=== PATIENT | female | born 1935 | race Two or more races ===

== ENCOUNTER 2023-07-05 00:15 | Emergency (ER) | payer OTHER ==
[~2023-07-05] VITALS: Ht 157.5 cm; Wt 49.9 kg
[2023-07-05] MEDS ORDERED: JANUMET 50-1,01 EACH PO (00:26)
[2023-07-05] MEDS ORDERED: ZESTRIL2.5 MG (00:26)
[2023-07-05] MEDS ORDERED: LEVOTHYROXINE25 MCG PO (00:26)
[2023-07-05 05:05] LABS: HEMATOCRIT 31.7 % (36.0-45.00); HEMOGLOBIN 10.7 g/dL (12.0-15.00); MEAN CELL VOLUME 88.5 fL (80.00-100.00); MEAN CORPUSCULAR HEMOGLOBIN 29.8 pg (27.00-32.0); MEAN CORPUSCULAR HGB CONC 33.7 g/dl (32.0-36.0); PLATELET COUNT 331 K/uL (150-450); RED BLOOD COUNT 3.58 M/uL (4.00-6.00); RED CELL DISTRIBUTION WIDTH 14.9 % (11.5-14.5)
[2023-07-05 05:09] LABS: INR 1.03; PROTHROMBIN TIME 10.8 SECONDS (9.0-11.5)
[2023-07-05 05:18] LABS: ALBUMIN 3.9 gm/dL (3.4-5.0); BILIRUBIN TOTAL 0.25 mg/dL (0.3-1.2); CALCIUM 10.4 mg/dL (8.5-10.1); CREATININE SERUM 0.96 mg/dL (0.55-1.02); GFR 54.98; GLOBULINA 5.4 G/DL (2.4-3.5); POTASSIUM 4.03 mEq/L (3.5-5.1); TOTAL PROTEIN 9.3 gm/dL (6.4-8.2)
[2023-07-05] MEDS ORDERED: LEVSIN/SL0.125 MG SL (07:47)
== END 2023-07-05 08:06 ==
LOC: ER 00:15
PROVIDERS: General Practice
DX: K62.5 Hemorrhage of anus and rectum (principal); E11.9 Type 2 diabetes mellitus without complications; Z79.84 Long term (current) use of oral hypoglycemic drugs; I10 Essential (primary) hypertension; K62.3 Rectal prolapse
CPT/HCPCS: 36415; 96365; 96366; 99284; J1885; J7030

== ENCOUNTER 2023-07-30 09:45 | Inpatient (IN) | payer OTHER ==
[~2023-07-30] VITALS: Ht 149.9 cm; Wt 44.9 kg
[~2023-07-30 09:45] MED LIST: JANUMET 50-1,01 EACH PO; LEVOTHYROXINE25 MCG PO; LEVSIN/SL0.125 MG SL; ZESTRIL2.5 MG
[2023-07-30] MEDS ORDERED: VASOTEC10 MG PO (13:58)
[2023-07-30] MEDS ORDERED: ATORVASTATIN CA10 MG PO (13:59)
[2023-07-30] MEDS ORDERED: CLARINEX-D 121 EACH PO (14:00)
[2023-08-06] MEDS ORDERED: CEFTRIAXONE SODIUM 2,000 MG VIAL ONE (10:43)
[2023-08-06] MEDS ORDERED: METRONIDAZOLE/SODIUM CHLORIDE 500 MG/100 ML PIGGYBACK IV ONE ×2 (10:43→13:30)
[2023-08-06] MEDS ORDERED: HEMOSTATIC MATRIX 1 KIT KIT TOP ONE ×2 (12:02→13:30)
[2023-08-06] MEDS ORDERED: DIBUCAINE 30 GM TUBE ONE ×2 (12:02→12:03)
[2023-08-06] MEDS ORDERED: POVIDONE-IODINE 118 ML BOTT TOP ONE ×2 (12:03→13:30)
[2023-08-06] MEDS ORDERED: LIDOCAINE HCL/EPINEPHRINE 20 ML VIAL IJ ONE (13:30)
[2023-08-06] MEDS ORDERED: DIBUCAINE 30 GM TUBE TOP ONE (13:30)
[2023-08-06] MEDS ORDERED: BUPIVACAINE HCL/PF 0.5% 1ML IJ ONE (13:30)
[2023-08-06] MEDS ORDERED: CEFTRIAXONE SODIUM 2,000 MG VIAL IV ONE (13:30)
[2023-08-06] MEDS ORDERED: RINGERS SOLUTION,LACTATED 1,000 ML IV SCH (15:30)
[2023-08-06] MEDS ORDERED: MORPHINE SULFATE 2 MG/ML CARTRIDGE IV PRN (15:30)
[2023-08-06] MEDS ORDERED: ONDANSETRON HCL 2 MG/ML VIAL IV PRN (15:30)
[2023-08-06] MEDS ORDERED: INSULIN LISPRO 1,000 UNIT/10 ML UNITS SUBCUTANEO PRN (15:30)
[2023-08-06] MEDS ORDERED: DEXTROSE 50 % IN WATER 0.5 G/ML DISP.SYRIN IV PRN (15:30)
[2023-08-06] MEDS ORDERED: ENALAPRILAT DIHYDRATE 1.25 MG/ML VIAL IV ONE (16:28)
[2023-08-06] MEDS ORDERED: POLYETHYLENE GLYCOL 3350 17 GM BLIST.PACK PO SCH (17:00)
[2023-08-06 17:15] LABS: HEMATOCRIT 34.5 % (36.0-45.00); HEMOGLOBIN 11.4 g/dL (12.0-15.00); MEAN CELL VOLUME 88.7 fL (80.00-100.00); MEAN CORPUSCULAR HEMOGLOBIN 29.4 pg (27.00-32.0); MEAN CORPUSCULAR HGB CONC 33.1 g/dl (32.0-36.0); PLATELET COUNT 312 K/uL (150-450); RED BLOOD COUNT 3.88 M/uL (4.00-6.00); RED CELL DISTRIBUTION WIDTH 14.1 % (11.5-14.5)
[2023-08-06] MEDS ORDERED: hydrALAZINE HCL 20 MG VIAL IV PRN (17:30)
[2023-08-06 17:40] LABS: ALBUMIN 3.9 gm/dL (3.4-5.0); CALCIUM 10.3 mg/dL (8.5-10.1); CREATININE SERUM 0.96 mg/dL (0.55-1.02); GFR 54.98; MAGNESIUM 2.2 mg/dL (1.8-2.4); PHOSPHOROUS 2.9 mg/dL (2.5-4.9); POTASSIUM 5.21 mEq/L (3.5-5.1)
[2023-08-06] MEDS ORDERED: ACETAMINOPHEN 500 MG GEL..CAP PO SCH (18:00)
[2023-08-06] MEDS ORDERED: FAMOTIDINE/PF 20 MG/2 ML VIAL IV PUSH SCH (21:00)
[2023-08-07 05:19] LABS: HEMATOCRIT 27.9 % (36.0-45.00); MEAN CELL VOLUME 89.7 fL (80.00-100.00); MEAN CORPUSCULAR HEMOGLOBIN 30.3 pg (27.00-32.0); MEAN CORPUSCULAR HGB CONC 33.8 g/dl (32.0-36.0); PLATELET COUNT 258 K/uL (150-450); RED CELL DISTRIBUTION WIDTH 13.6 % (11.5-14.5)
[2023-08-07 05:26] LABS: HEMOGLOBIN 9.4 g/dL (12.0-15.00)
[2023-08-07 05:41] LABS: ALBUMIN 3.2 gm/dL (3.4-5.0); CALCIUM 9.5 mg/dL (8.5-10.1); CREATININE SERUM 1.03 mg/dL (0.55-1.02); GFR 50.69; PHOSPHOROUS 2.7 mg/dL (2.5-4.9); POTASSIUM 4.24 mEq/L (3.5-5.1)
[2023-08-07] MEDS ORDERED: LEVOTHYROXINE SODIUM 25 MCG TABLET PO SCH (06:00)
[2023-08-07] MEDS ORDERED: NAPH,MB-DB/K PH,MBDB 1 PKT PACKET PO STA (08:36)
[2023-08-07] MEDS ORDERED: LACTOBACILLUS ACIDOPHILUS 1 CAP CAP PO SCH (09:00)
[2023-08-07] MEDS ORDERED: ENALAPRIL MALEATE 10 MG TABLET PO SCH (09:00)
[2023-08-07] MEDS ORDERED: MAGNESIUM CHLORIDE 70 MG TABLET.DR PO SCH (09:00)
[2023-08-07] MEDS ORDERED: LISINOPRIL 2.5 MG TABLET PO SCH (09:00)
[2023-08-07] MEDS ORDERED: ENOXAPARIN SODIUM 40 MG/0.4 ML SYRINGE SUBCUTANEO SCH (17:00)
== END 2023-08-07 13:47 | disposition home or self-care (01) | DRG 331 ==
LOC: O/R 08-06 08:35 → SURH 08-06 09:15 → SURG 08-06 16:04
PROVIDERS: ADMIT Colon & Rectal Surgery; ATTEND Colon & Rectal Surgery
PROC: 0DBP0ZZ Excision of Rectum, Open Approach (ICD-10-PCS; 2023-08-06)
PROC: 0DQR0ZZ Repair Anal Sphincter, Open Approach (ICD-10-PCS; 2023-08-06)
PROC: 0DTNFZZ Resection of Sigmoid Colon, Via Natural or Artificial Opening With Percutaneous Endoscopic Assistance (ICD-10-PCS; principal; 2023-08-06 09:15)
DX: K62.3 Rectal prolapse (principal); Z20.822 Contact with and (suspected) exposure to COVID-19

== ENCOUNTER 2023-08-06 07:19 | Outpatient (CLI) | payer OTHER ==
[~2023-08-06 07:19] MED LIST changes: +ATORVASTATIN CA10 MG PO; +CLARINEX-D 121 EACH PO; +VASOTEC10 MG PO
== END 2023-08-06 14:51 | disposition home or self-care (01) ==
LOC: LAB 07:19
PROVIDERS: ATTEND Colon & Rectal Surgery
DX: E87.5 Hyperkalemia (principal)